=== PATIENT | male | born 1980 | race Caucasian/White ===

== ENCOUNTER 2023-06-21 11:37 | Outpatient (OUT) | payer BC, SELFPAY ==
[2023-06-21 12:02] LABS: Basophils Percent Auto 0.8 % (0.2-2.0); Eosinophils Absolute Auto 0.1 10^3/uL (0.0-0.7); Eosinophils Percent Auto 1.5 % (0.9-7.0); Hematocrit 43.7 % (42.0-54.0); Hemoglobin 14.9 g/dL (14.0-18.0); Immature Granulocytes Abs Auto 0.01 10^3/uL (0.00-0.03); Immature Granulocytes Pct Auto 0.3 % (0.0-0.5); Lymphocytes Absolute Auto 0.9 10^3/uL (1.2-3.8); Lymphocytes Percent Auto 23.3 % (20.5-60.0); Mean Corpuscular HGB Conc 34.1 g/dL (29.9-35.2); Mean Corpuscular Hemoglobin 31.8 pg (25.9-34.0); Mean Corpuscular Volume 93.2 fL (80.0-94.0); Mean Platelet Volume 9.7 fL (9.5-13.5); Monocytes Absolute Auto 0.3 10^3/uL (0.3-0.8); Monocytes Percent Auto 7.9 % (1.7-12.0); Neutrophils Absolute Auto 2.6 10^3/uL (1.4-6.5); Neutrophils Percent Auto 66.2 % (43.0-75.0); Platelet Count 177 10^3/uL (150-450); Red Blood Count 4.69 10^6/uL (4.70-6.10); Red Cell Distribution Width 11.9 % (11.0-15.0); White Blood Count 3.9 10^3/uL (4.0-11.0)
[2023-06-21 12:11] LABS: Estimated Average Glucose 146 mg/dL; Glycohemoglobin A1C 6.7 % (4.5-6.2)
[2023-06-21 12:56] LABS: Alanine Aminotransferase 85 U/L (16-63); Alkaline Phosphatase 40 U/L (46-116); Anion Gap 8.5; Aspartate Amino Transferase 35 U/L (15-37); BUN Creatinine Ratio 14.4; Bilirubin Total 0.4 mg/dL (0.2-1.0); Carbon Dioxide 29.7 mmol/L (21.0-32.0); Chloride 102 mmol/L (98-107); Chol HDL Ratio 3.7; Cholesterol 181 mg/dL (<=200); Estimated GFR (African America >60 (>=60); Estimated GFR (Non-African Ame >60 (>=60); Globulin 3.9 g/dL; Glucose 158 mg/dL (74-106); HDL Cholesterol 49 mg/dL (40-60); Potassium 4.2 mmol/L (3.5-5.1); Sodium 136 mmol/L (136-145); Thyroid Stimulating Hormone 2.112 uIU/mL (0.358-3.740); Total Protein 7.9 g/dL (6.4-8.2); Triglycerides 241 mg/dL (<=150); VLDL CHOLESTEROL 48.2 mg/dL
[2023-06-21 13:00] LABS: Free T4 0.86 ng/dL (0.76-1.46)
[2023-06-21 13:10] LABS: Prostate Specific Antigen Scrn 0.89 ng/mL (<=4.00)
== END 2023-06-21 11:38 | disposition home or self-care (01) ==
LOC: LAB 11:40
PROVIDERS: PCP Family Medicine; Visit Provider Family Medicine
DX: E78.5 Hyperlipidemia, unspecified (principal); I10 Essential (primary) hypertension; Z12.5 Encounter for screening for malignant neoplasm of prostate; R53.83 Other fatigue; R73.09 Other abnormal glucose
CPT/HCPCS: 36415; 80053; 80061; 83036; 84439; 84443; 85025; G0103

== ENCOUNTER 2023-06-22 13:59 | Outpatient (REF) | payer BC, SELFPAY ==
--- OUTSIDE RECORDS SUMMARY | 2023-06-22 14:03 | XMS_ITS | CCD ---
Author Name Unknown Address [facility] [place] [address] Organization [facility] Care Team Providers Care Cotton Grader Name Role Phone DR LAURA FORREST Admitting Unavailable LON, DR SANCHEZ Attending Unavailable LON, DR SANCHEZ Primary Care Unavailable LON, DR SANCHEZ Consulting Unavailable DR LAURA FORREST Admitting Unavailable DR LAURA FORREST Attending Unavailable DR LAURA FORREST Primary Care Unavailable LON, DR SANCHEZ Consulting Unavailable Problems Active Problems Problem Classification Problem Date Documented Da te Episodic/Chronic Disorders of lipid metabolism (1 source) Hyperlipidemia, unspecified; Translations: [HYPERLIPIDEMIA UNSPECIFIED] Onset: 07-04-2022 Chronic Malaise and fatigue (1 source) Other fatigue; Translations: [OTHER FATIGUE] Onset: 07-04-2022 Episodic Other screening for suspected conditions (not mental disorders or infectious disease) (2 sources) Encounter for screening for malignant neoplasm of colon; Translations: [Encounter for screening for malignant neoplasm of prostate] Onset: 07-04-2022 Episodic Past or Other Problems Problem Classification Problem Date Documented Da te Episodic/Chronic Other aftercare (4 sources) 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 Comment on above: Result Comment: The table below lists the probability of prostate cancer for men with non-suspicious ROXANNE results and total PSA between 4 and 10 ng/mL, by patient age (Ximena et al, JANET 1998, [id number]:1542). % Free PSA 50-64 yr 65-75 yr 0.00-10.00% 56% 55% 10.01-15.00% 24% 35% 15.01-20.00% 17% 23% 20.01-25.00% 10% 20% >25.00% 5% 9% Please note: Ximena et al did not make specific recommendations regarding the use of percent free PSA for any other population of men. Performed By: #### P SAFREE #### [facility] [address] [place] [address] Dr. Uriel Baldwin Prostate specific Ag [Mass/Vol] 0.8 ng/mL Normal 0.0-4.0 [facility] Comment on above: Result Comment: Nilton RAMOS methodology. . According to the [place] [employer], Serum PSA should decrease and remain at undetectable levels after radical prostatectomy. The AUA defines biochemical recurrence as an initial PSA value 0.2 ng/mL or greater followed by a subsequent confirmatory PSA value 0.2 ng/mL or greater. Values obtained with different assay methods or kits cannot be used interchangeably. Results cannot be interpreted as absolute evidence of the presence or absence of malignant disease. Performed By: #### P SAFREE #### [facility] [address] [place] [address] Dr. Uriel Baldwin PSA, Free 0.20 ng/mL Normal N/A [facility] Comment on above: Result Comment: Nilton RAMOS methodology. Performed By: #### P SAFREE #### [facility] [address] [place] [address] Dr. Uriel Baldwin CBC AUTO DIFFon 07-03-2022 BASO # 0.0 103/ul Normal 0.0-0.1 [facility] Comment on above: Performed By: #### C BC #### [facility] [address] [place] [address] Dr. Uriel Baldwin Basophils/100 WBC (Bld) 0.5 % Normal 0.2-2.0 [facility] Comment on above: Performed By: #### C BC #### [facility] [address] [place] [address] Dr. Uriel Baldwin EO # 0.1 103/ul Normal 0.0-0.7 [facility] Comment on above: Performed By: #### C BC #### [facility] [address] [place] [address] Dr. Uriel Baldwin Eosinophils/100 WBC (Bld) 1.4 % Normal 0.9-7.0 [facility] Comment on above: Performed By: #### C BC #### [facility] [address] [place] [address] Dr. Uriel Baldwin Erythrocyte distribution width (RBC) [Ratio] 12.6 % Normal 11.0-15.0 [facility] Comment on above: Performed By: #### C BC #### [facility] [address] [place] [address] Dr. Uriel Baldwin Hematocrit (Bld) [Volume fraction] 45.3 % Normal 42.0-54.0 [facility] Comment on above: Performed By: #### C BC #### [facility] [address] [place] [address] Dr. Uriel Baldwin Hemoglobin (Bld) [Mass/Vol] 14.5 g/dL Normal 14.0-18.0 [facility] Comment on above: Performed By: #### C BC #### [facility] [address] [place] [address] Dr. Uriel Baldwin IG # 0.00 10e3/ul Normal 0.00-0.03 [facility] Comment on above: Performed By: #### C BC #### [facility] [address] [place] [address] Dr. Uriel Baldwin IG % 0.0 % Normal 0.0-0.5 [facility] Comment on above: Performed By: #### C BC #### [facility] [address] [place] [address] Dr. Uriel Baldwin LYMPH # 1.1 103/ul Critically low 1.2-3.8 [facility] Comment on above: Performed By: #### C BC #### [facility] [address] [place] [address] Dr. Uriel Baldwin Lymphocytes/100 WBC (Bld) 29.0 % Normal 20.5-60.0 [facility] Comment on above: Performed By: #### C BC #### [facility] [address] [place] [address] Dr. Uriel Baldwin MANUAL DIFF REQ NO Normal [facility] Comment on above: Performed By: #### C BC #### [facility] [address] [place] [address] Dr. Uriel Baldwin MCH (RBC) [Entitic mass] 31.0 pg Normal 25.9-34.0 [facility] Comment on above: Performed By: #### C BC #### [facility] [address] [place] [address] Dr. Uriel Baldwin MCHC (RBC) [Mass/Vol] 32.0 g/dL Normal 29.9-35.2 [facility] Comment on above: Performed By: #### C BC #### [facility] [address] [place] [address] Dr. Uriel Baldwin MCV (RBC) [Entitic vol] 96.8 fL Critically high 80.0-94.0 [facility] Comment on above: Performed By: #### C BC #### [facility] [address] [place] [address] Dr. Uriel Baldwin MONO # 0.3 103/ul Normal 0.3-0.8 [facility] Comment on above: Performed By: #### C BC #### [facility] [address] [place] [address] Dr. Uriel Baldwin Monocytes/100 WBC (Bld) 9.3 % Normal 1.7-12.0 [facility] Comment on above: Performed By: #### C BC #### [facility] [address] [place] [address] Dr. Uriel Baldwin NEUT # 2.2 103/ul Normal 1.4-6.5 [facility] Comment on above: Performed By: #### C BC #### [facility] [address] [place] [address] Dr. Uriel Baldwin Neutrophils/100 WBC (Bld) 59.8 % Normal 43.0-75.[address] [facility] Comment on above: Performed By: #### C BC #### [facility] [address] [place] [address] Dr. Uriel Baldwin Platelet mean volume (Bld) [Entitic vol] 9.6 fL Normal 9.5-13.5 [facility] Comment on above: Performed By: #### C BC #### [facility] [address] [address] [address] Uriel Baldwin PLT 179 103/ul Normal 150-450 [facility] Comment on above: Performed By: #### C BC #### [facility] [address] [place] [address] Dr. Uriel Baldwin RBC 4.68 106/ul Critically low 4.70-6.10 [facility] Comment on above: Performed By: #### C BC #### [facility] [address] [address] [address] Uriel Baldwin WBC 3.7 103/ul Critically low 4.0-11.0 [facility] Comment on above: Performed By: #### C BC #### [facility] [address] [place] [address] Dr. Uriel Baldwin FREE T3on 07-03-2022 FREE T3 2.96 pg/mlL Normal 2.18-3.98 [facility] Comment on above: Performed By: #### L IPID, FT3, CMP, TSH, T4 #### [facility] [address] [place] [address] Dr. Uriel Baldwin GLYCOHEMOGLOBIN A1Con 2022 ADA RECOMMENDATION SEE BELOW Normal [facility] Comment on above: Result Comment: ADA RECOMMENDED LIMIT 4.0 - 6.0 ADA THERAPEUTIC TARGET < 7.0 ACTION SUGGESTED > 7.0 Performed By: #### A 1C #### [facility] [address] [place] [address] Dr. Uriel Baldwin Glucose [Mass/Vol] 131 mg/dL Normal [facility] Comment on above: Performed By: #### A 1C #### [facility] [address] [place] [address] Dr. Uriel Baldwin HbA1c (Bld) [Mass fraction] 6.2 % Normal 4.5-6.2 [facility] Comment on above: Performed By: #### A 1C #### [facility] [address] [place] [address] Dr. Uriel Baldwin LIPID PROFILEon 07-03-2022 CHOL-HDL RATIO NORM SEE BELOW Normal [facility] Comment on above: Result Comment: 3.3 - 4.4 LOW RISK 4.4 - 7.1 AVERAGE RISK 7.1 - 11.0 MODERATE RISK >11.0 HIGH RISK Performed By: #### L IPID, FT3, CMP, TSH, T4 #### [facility] [address] [address] [address] Uriel Baldwin Cholesterol [Mass/Vol] 163 mg/dL Normal <=200 [facility] Comment on above: Performed By: #### L IPID, FT3, CMP, TSH, T4 #### [facility] [address] [address] [address] Uriel Baldwin Cholesterol in HDL [Mass/Vol] 51 mg/dL Normal 40-60 [facility] Comment on above: Performed By: #### L IPID, FT3, CMP, TSH, T4 #### [facility] [address] [address] [address] Uriel Baldwin Cholesterol in LDL [Mass/Vol] 74.4 mg/dL Normal [facility] Comment on above: Performed By: #### L IPID, FT3, CMP, TSH, T4 #### [facility] [address] [address] [address] Uriel Baldwin Cholesterol.total/Cho lesterol in HDL [Mass ratio] 3.2 {ratio} Normal [facility] Comment on above: Performed By: #### L IPID, FT3, CMP, TSH, T4 #### [facility] [address] [address] [address] Uriel Baldwin HDL NORMAL > or = 60 mg/dl - LOW CARDIOVASCULAR RISK <40 mg/dl - HIGH CARDIOVASCULAR RISK Normal [facility] Comment on above: Performed By: #### L IPID, FT3, CMP, TSH, T4 #### [facility] [address] [address] [address] Uriel Baldwin LDL CALC NORMAL SEE BELOW Normal [facility] Comment on above: Result Comment: <100 mg/dl OPTIMAL 100 - 129 mg/dl NEAR OR ABOVE OPTIMAL 130 - 159 mg/dl BORDERLINE HIGH 160 - 189 mg/dl HIGH >190 mg/dl VERY HIGH Performed By: #### L IPID, FT3, CMP, TSH, T4 #### [facility] [address] [address] [address] Uriel Baldwin Triglyceride [Mass/Vol] 188 mg/dL Critically high <=150 [facility] Comment on above: Performed By: #### L IPID, FT3, CMP, TSH, T4 #### [facility] [address] [address] [address] Uriel Baldwin VLDL CALC 37.6 mg/dL Normal [facility] Comment on above: Performed By: #### L IPID, FT3, CMP, TSH, T4 #### [facility] [address] [place] [address] Dr. Uriel Baldwin PROF 14(COMP METB)on 023 Albumin [Mass/Vol] 4.0 g/dL Normal 3.4-5.0 [facility] Comment on above: Performed By: #### L IPID, FT3, CMP, TSH, T4 #### [facility] [address] [address] [address] Uriel Baldwin Albumin/Globulin [Mass ratio] 1.2 {ratio} Normal [facility] Comment on above: Performed By: #### L IPID, FT3, CMP, TSH, T4 #### [facility] [address] [address] [address] Uriel Baldwin ALP [Catalytic activity/Vol] 49 U/L Normal 46-116 [facility] Comment on above: Performed By: #### L IPID, FT3, CMP, TSH, T4 #### [facility] [address] [address] [address] Uriel Baldwin ALT [Catalytic activity/Vol] 59 U/L Normal 16-63 [facility] Comment on above: Performed By: #### L IPID, FT3, CMP, TSH, T4 #### [facility] [address] [address] [address] Uriel Baldwin Anion gap [Moles/Vol] 13.3 mmol/L Normal e [facility] Comment on above: Performed By: #### L IPID, FT3, CMP, TSH, T4 #### [facility] [address] [address] [address] Uriel Baldwin AST [Catalytic activity/Vol] 28 U/L Normal 15-37 [facility] Comment on above: Performed By: #### L IPID, FT3, CMP, TSH, T4 #### [facility] [address] [address] [address] Uriel Baldwin Bilirubin [Mass/Vol] 0.5 mg/dL Normal 0.2-1.0 [facility] Comment on above: Performed By: #### L IPID, FT3, CMP, TSH, T4 #### [facility] [address] [place] [address] Dr. Uriel Baldwin Calcium [Mass/Vol] 8.7 mg/dL Normal 8.5-10.1 [facility] Comment on above: Performed By: #### L IPID, FT3, CMP, TSH, T4 #### [facility] [address] [address] [address] Uriel Baldwin Chloride [Moles/Vol] 103 mmol/L Normal 98-107 [facility] Comment on above: Performed By: #### L IPID, FT3, CMP, TSH, T4 #### [facility] [address] [place] [address] Dr. Uriel Baldwin CO2 [Moles/Vol] 27.4 mmol/L Normal 21.0-32.0 [facility] Comment on above: Performed By: #### L IPID, FT3, CMP, TSH, T4 #### [facility] [address] [address] [address] Uriel Baldwin Creatinine [Mass/Vol] 0.90 mg/dL Normal 0.70-1.30 [facility] Comment on above: Performed By: #### L IPID, FT3, CMP, TSH, T4 #### [facility] [address] [address] [address] Uriel Baldwin EGFR-AF GIBRALTARIAN >60 Normal >=60 [facility] Comment on above: Performed By: #### L IPID, FT3, CMP, TSH, T4 #### [facility] [address] [address] [address] Uriel Baldwin EGFR-NON AF GIBRALTARIAN >60 Normal >=60 [facility] Comment on above: Performed By: #### L IPID, FT3, CMP, TSH, T4 #### [facility] [address] [address] [address] Uriel Baldwin Globulin (S) [Mass/Vol] 3.4 g/dL Normal [facility] Comment on above: Performed By: #### L IPID, FT3, CMP, TSH, T4 #### [facility] [address] [place] [address] Dr. Uriel Baldwin Glucose [Mass/Vol] 140 mg/dL Critically high 74-106 [facility] Comment on above: Performed By: #### L IPID, FT3, CMP, TSH, T4 #### [facility] [address] [address] [address] Uriel Baldwin Potassium [Moles/Vol] 4.7 mmol/L Normal 3.5-5.1 [facility] Comment on above: Performed By: #### L IPID, FT3, CMP, TSH, T4 #### [facility] [address] [place] [address] Dr. Uriel Baldwin Protein [Mass/Vol] 7.4 g/dL Normal 6.4-8.2 [facility] Comment on above: Performed By: #### L IPID, FT3, CMP, TSH, T4 #### [facility] [address] [address] [address] Uriel Baldwin Sodium [Moles/Vol] 139 mmol/L Normal 136-145 [facility] Comment on above: Performed By: #### L IPID, FT3, CMP, TSH, T4 #### [facility] [address] [place] [address] Dr. Uriel Baldwin Urea nitrogen [Mass/Vol] 16.0 mg/dL Normal 7.0-18.0 [facility] Comment on above: Performed By: #### L IPID, FT3, CMP, TSH, T4 #### [facility] [address] [address] [address] Uriel Baldwin Urea nitrogen/Creatinine [Mass ratio] 17.8 mg/mg Normal [facility] Comment on above: Performed By: #### L IPID, FT3, CMP, TSH, T4 #### [facility] [address] [address] [address] Uriel Baldwin T4on 07-03-2022 T4 [Mass/Vol] 6.10 ug/dL Normal 4.50-12.10 [facility] Comment on above: Performed By: #### L IPID, FT3, CMP, TSH, T4 #### [facility] [address] [place] [address] Dr. Uriel Baldwin TSHon 07-03-2022 TSH 1.756 uIU/mL Normal 0.358-3.740 [facility] Comment on above: Performed By: #### L IPID, FT3, CMP, TSH, T4 #### [facility] [address] [place] [address] Dr. Uriel Baldwin LIPID PROFILEon 09-17-2021 CHOL-HDL RATIO NORM SEE BELOW Normal [facility] Comment on above: Result Comment: 3.3 - 4.4 LOW RISK 4.4 - 7.1 AVERAGE RISK 7.1 - 11.0 MODERATE RISK >11.0 HIGH RISK Performed By: #### L IVER, LIPID #### [facility] [address] [place] [address] Dr. Uriel Baldwin Cholesterol [Mass/Vol] 135 mg/dL Normal <=200 [facility] Comment on above: Performed By: #### L IVER, LIPID #### [facility] [address] [place] [address] Dr. Uriel Baldwin Cholesterol in HDL [Mass/Vol] 42 mg/dL Normal 40-60 [facility] Comment on above: Performed By: #### L IVER, LIPID #### [facility] [address] [place] [address] Dr. Uriel Baldwin Cholesterol in LDL [Mass/Vol] 58.0 mg/dL Normal [facility] Comment on above: Performed By: #### L IVER, LIPID #### [facility] [address] [address] [address] Uriel Baldwin Cholesterol.total/Cho lesterol in HDL [Mass ratio] 3.2 {ratio} Normal [facility] Comment on above: Performed By: #### L IVER, LIPID #### [facility] [address] [address] [address] Uriel Baldwin HDL NORMAL > or = 60 mg/dl - LOW CARDIOVASCULAR RISK <40 mg/dl - HIGH CARDIOVASCULAR RISK Normal [facility] Comment on above: Performed By: #### L IVER, LIPID #### [facility] [address] [address] [address] Uriel Baldwin LDL CALC NORMAL SEE BELOW Normal [facility] Comment on above: Result Comment: <100 mg/dl OPTIMAL 100 - 129 mg/dl NEAR OR ABOVE OPTIMAL 130 - 159 mg/dl BORDERLINE HIGH 160 - 189 mg/dl HIGH >190 mg/dl VERY HIGH Performed By: #### L IVER, LIPID #### [facility] [address] [address] [address] Uriel Baldwin Triglyceride [Mass/Vol] 175 mg/dL Critically high <=150 [facility] Comment on above: Performed By: #### L IVER, LIPID #### [facility] [address] [address] [address] Uriel Baldwin VLDL CALC 35.0 mg/dL Normal [facility] Comment on above: Performed By: #### L IVER, LIPID #### [facility] [address] [address] [address] Uriel Baldwin LIVER PROFILEon 09-17-2021 Albumin [Mass/Vol] 4.0 g/dL Normal 3.4-5.0 [facility] Comment on above: Performed By: #### L IVER, LIPID #### [facility] [address] [address] [address] Uriel Baldwin Albumin/Globulin [Mass ratio] 1.2 {ratio} Normal [facility] Comment on above: Performed By: #### L IVER, LIPID #### [facility] [address] [address] [address] Uriel Baldwin ALP [Catalytic activity/Vol] 46 U/L Normal 46-116 [facility] Comment on above: Performed By: #### L IVER, LIPID #### [facility] [address] [address] [address] Uriel Baldwin ALT [Catalytic activity/Vol] 63 U/L Normal 16-63 [facility] Comment on above: Performed By: #### L IVER, LIPID #### [facility] [address] [address] [address] Uriel Baldwin AST [Catalytic activity/Vol] 25 U/L Normal 15-37 [facility] Comment on above: Performed By: #### L IVER, LIPID #### [facility] [address] [address] [address] Uriel Baldwin BILI, CONJUGATED 0.1 mg/dL Normal 0.0-0.2 [facility] Comment on above: Performed By: #### L IVER, LIPID #### [facility] [address] [address] [address] Uriel Baldwin Bilirubin [Mass/Vol] 0.4 mg/dL Normal 0.2-1.0 [facility] Comment on above: Performed By: #### L IVER, LIPID #### [facility] [address] [address] [address] Uriel Baldwin Globulin (S) [Mass/Vol] 3.4 g/dL Normal [facility] Comment on above: Performed By: #### L IVER, LIPID #### [facility] [address] [address] [address] Uriel Baldwin Protein [Mass/Vol] 7.4 g/dL Normal 6.1-8.2 [facility] Comment on above: Performed By: #### L IVER, LIPID #### [facility] [address] [address] [address] Uriel Baldwin Encounters Encounter Date Encounter Type Care Provider Facility Start: 02-07-2023 Encounter for genera l adult medical examination without abnormal findings DR LAURA FORREST [facility] Start: 07-03-2022 End: 07-04-[address] LAURA FORREST Facility:[facility] Start: 07-03-2022 End: 07-04-2022 Encounter for general adult medical examination without abnormal findings DR LAURA FORREST Facility:[facility] Start: 09-17-2021 End: 09-18-[address] LAURA FORREST Facility:[facility] Payers Date Payer Category Payer Unknown [id number] 1980 Unknown [id number] 1959 Unknown [id number] 1959 Unknown [id number] Summary Purpose Family History No Family History Records Found Advance Directives No Advanced Directives Records Found Additional Source Comments (unrecognized sect ion and content) No Status Records Found INFORMATION SOURCE (unrecogn ized section and content) DATE CREATED AUTHOR 07/05/2022 The [facility] FOR RECORDS PERTAINING TO PATIENTS WHO ARE OR HAVE BEEN ENROLLED IN A CHEMICAL DEPENDENCY/SUBSTANCEABUSE PROGRAM, SOME INFORMATION MAY BE OMITTED. This clinical summary was aggregated from multiple sources. Caution should be exercised in using it in the provision of clinical care. This summary normalizes information from multiple sources, and as a consequence, information in this document may materially change the coding, format and clinical context of patient data. In addition, data may be omitted in some cases. CLINICAL DECISIONS SHOULD BE BASED ON THE PRIMARY CLINICAL RECORDS. [facility] [employer] provides no warranty or guarantee of the accuracy or completeness of information in this document.
[2023-06-23 03:10] LABS: Occult Blood Negative
== END 2023-06-22 14:00 | disposition home or self-care (01) ==
LOC: LAB 13:59
PROVIDERS: PCP Family Medicine; Visit Provider Family Medicine
DX: Z12.11 Encounter for screening for malignant neoplasm of colon (principal)
CPT/HCPCS: G0328

== ENCOUNTER 2024-06-20 10:54 | Outpatient (OUT) | payer BC, SELFPAY ==
--- OUTSIDE RECORDS SUMMARY | 2024-06-20 10:59 | XMS_ITS | CCD ---
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 % Free PSA 50-64 yr 65-75 yr 0.00-10.00% 56% 55% 10.01-15.00% 24% 35% 15.01-20.00% 17% 23% 20.01-25.00% 10% 20% >25.00% 5% 9% Please note: Catalona et al did not make specific recommendations regarding the use of percent free PSA for any other population of men. Performed By: #### P SAFREE #### [facility] [address] [place] [address] Dr. Uriel Baldwin Prostate specific Ag [Mass/Vol] 0.8 ng/mL Normal 0.0-4.0 [facility] Comment on above: Result Comment: Nilton arreola ECLIA methodology. . According to the [employer] [employer], Serum PSA should decrease and [...] disease. Performed By: #### P SAFREE #### [facility] [address] [place] [address] Dr. Uriel Baldwin PSA, Free 0.20 ng/mL Normal N/A [facility] Comment on above: Result Comment: [place]ilton arreola ECLIA methodology. Performed By: #### P SAFREE #### [facility] [address] [place] [address] Dr. Uriel Baldwin CBC AUTO DIFFon 07-03-2022 BASO # 0.0 103/ul Normal 0.0-0.1 [facility] Comment on above: Performed By: #### C BC #### [facility] [address] [place] [address] Dr. Uriel Baldwin Basophils/100 WBC (Bld) 0.5 % Normal 0.2-2.0 [facility] Comment on above: Performed By: #### C BC #### [facility] [address] [place] [address] Dr. Uriel Baldwin EO # 0.1 103/ul Normal 0.0-0.7 [facility] Comment on above: Performed By: #### C BC #### [facility] [address] [place] [address] Dr. Uriel Baldwin Eosinophils/100 WBC (Bld) 1.4 % Normal 0.9-7.0 [facility] Comment on above: Performed By: #### C BC #### [facility] [address] [place] [address] Dr. Uriel Baldwin Erythrocyte distribution width (RBC) [Ratio] 12.6 % Normal 11.0-15.0 [facility] Comment on above: Performed By: #### C BC #### [facility] [address] [place] [address] Dr. Uriel Baldwin Hematocrit (Bld) [Volume fraction] 45.3 % Normal 42.0-54.0 [facility] Comment on above: Performed By: #### C BC #### [facility] [address] [place] [address] Dr. Uriel Baldwin Hemoglobin (Bld) [Mass/Vol] 14.5 g/dL Normal 14.0-18.0 [facility] Comment on above: Performed By: #### C BC #### [facility] [address] [place] [address] Dr. Uriel Baldwin IG # 0.00 10e3/ul Normal 0.00-0.03 [facility] Comment on above: Performed By: #### C BC #### [facility] [address] [place] [address] Dr. Uriel Baldwin IG % 0.0 % Normal 0.0-0.5 [facility] Comment on above: Performed By: #### C BC #### [facility] [address] [place] [address] Dr. Uriel Baldwin LYMPH # 1.1 103/ul Critically low 1.2-3.8 [facility] Comment on above: Performed By: #### C BC #### [facility] [address] [place] [address] Dr. Uriel Baldwin Lymphocytes/100 WBC (Bld) 29.0 % Normal 20.5-60.0 [facility] Comment on above: Performed By: #### C BC #### [facility] [address] [place] [address] Dr. Uriel Baldwin MANUAL DIFF REQ NO Normal [facility] Comment on above: Performed By: #### C BC #### [facility] [address] [place] [address] Dr. Uriel Baldwin MCH (RBC) [Entitic mass] 31.0 pg Normal 25.9-34.0 [facility] Comment on above: Performed By: #### C BC #### [facility] [address] [place] [address] Dr. Uriel Baldwin MCHC (RBC) [Mass/Vol] 32.0 g/dL Normal 29.9-35.2 [facility] Comment on above: Performed By: #### C BC #### [facility] [address] [place] [address] Dr. Uriel Baldwin MCV (RBC) [Entitic vol] 96.8 fL Critically high 80.0-94.0 [facility] Comment on above: Performed By: #### C BC #### [facility] [address] [place] [address] Dr. Uriel Baldwin MONO # 0.3 103/ul Normal 0.3-0.8 [facility] Comment on above: Performed By: #### C BC #### [facility] [address] [place] [address] Dr. Uriel Baldwin Monocytes/100 WBC (Bld) 9.3 % Normal 1.7-12.0 [facility] Comment on above: Performed By: #### C BC #### [facility] [address] [place] [address] Dr. Uriel Baldwin NEUT # 2.2 103/ul Normal 1.4-6.5 [facility] Comment on above: Performed By: #### C BC #### [facility] [address] [place] [address] Dr. Uriel Baldwin Neutrophils/100 WBC (Bld) 59.8 % Normal 43.0-75.0 [facility] Comment on above: Performed By: #### C BC #### [facility] [address] [place] [address] Dr. Uriel Baldwin Platelet mean volume (Bld) [Entitic vol] 9.6 fL Normal 9.5-13.5 [facility] Comment on above: Performed By: #### C BC #### [facility] [address] [address] [address] Uriel Baldwin PLT 179 103/ul Normal 150-450 [facility] Comment on above: Performed By: #### C BC #### [facility] [address] [address] [address] Uriel Baldwin RBC 4.68 106/ul Critically low 4.70-6.10 [facility] Comment on above: Performed By: #### C BC #### [facility] [address] [address] [address] Uriel Baldwin WBC 3.7 103/ul Critically low 4.0-11.0 [facility] Comment on above: Performed By: #### C BC #### [facility] [address] [place] [address] Dr. Uriel Baldwin FREE T3on 07-03-2022 FREE T3 2.96 pg/mlL Normal 2.18-3.98 [facility] Comment on above: Performed By: #### L IPID, FT3, CMP, TSH, T4 #### [facility] [address] [address] [address] Uriel Baldwin GLYCOHEMOGLOBIN A1Con 2022 ADA RECOMMENDATION SEE BELOW Normal [facility] Comment on above: Result Comment: ADA RECOMMENDED LIMIT 4.0 - 6.0 ADA THERAPEUTIC TARGET < 7.0 ACTION SUGGESTED > 7.0 Performed By: #### A 1C #### [facility] [address] [address] [address] Uriel Baldwin Glucose [Mass/Vol] 131 mg/dL Normal [facility] Comment on above: Performed By: #### A 1C #### [facility] [address] [address] [address] Uriel Baldwin HbA1c (Bld) [Mass fraction] 6.2 % Normal 4.5-6.2 [facility] Comment on above: Performed By: #### A 1C #### [facility] [address] [address] [address] Uriel Baldwin LIPID PROFILEon 07-03-2022 CHOL-HDL RATIO NORM SEE BELOW Normal [facility] Comment on above: Result Comment: 3.3 - 4.4 LOW RISK 4.4 - 7.1 AVERAGE RISK 7.1 - 11.0 MODERATE RISK >11.0 HIGH RISK Performed By: #### L IPID, FT3, CMP, TSH, T4 #### [facility] [address] [address] [address] Uriel Baldwin Cholesterol [Mass/Vol] 163 mg/dL Normal <=200 [facility] Comment on above: Performed By: #### L IPID, FT3, CMP, TSH, T4 #### [facility] [address] [address] [address] Uriel Baldwin Cholesterol in HDL [Mass/Vol] 51 mg/dL Normal 40-60 [facility] Comment on above: Performed By: #### L IPID, FT3, CMP, TSH, T4 #### [facility] [address] [place] [address] Dr. Uriel Baldwin Cholesterol in LDL [Mass/Vol] 74.4 mg/dL Normal [facility] Comment on above: Performed By: #### L IPID, FT3, CMP, TSH, T4 #### [facility] [address] [place] [address] Dr. Uriel Baldwin Cholesterol.total/Cho lesterol in HDL [Mass ratio] 3.2 {ratio} Normal [facility] Comment on above: Performed By: #### L IPID, FT3, CMP, TSH, T4 #### [facility] [address] [address] [address] Uriel Baldwin HDL NORMAL > or = 60 mg/dl - LOW CARDIOVASCULAR RISK <40 mg/dl - HIGH CARDIOVASCULAR RISK Normal [facility] Comment on above: Performed By: #### L IPID, FT3, CMP, TSH, T4 #### [facility] [address] [place] [address] Dr. Uriel Baldwin LDL CALC NORMAL SEE BELOW Normal [facility] Comment on above: Result Comment: <100 mg/dl OPTIMAL 100 - 129 mg/dl NEAR OR ABOVE OPTIMAL 130 - 159 mg/dl BORDERLINE HIGH 160 - 189 mg/dl HIGH >190 mg/dl VERY HIGH Performed By: #### L IPID, FT3, CMP, TSH, T4 #### [facility] [address] [address] [address] Uriel Baldwin Triglyceride [Mass/Vol] 188 mg/dL Critically high <=150 [facility] Comment on above: Performed By: #### L IPID, FT3, CMP, TSH, T4 #### [facility] [address] [address] [address] Uriel Baldwin VLDL CALC 37.6 mg/dL Normal [facility] Comment on above: Performed By: #### L IPID, FT3, CMP, TSH, T4 #### [facility] [address] [place] [address] Dr. Uriel Baldwin PROF 14(COMP METB)on 023 Albumin [Mass/Vol] 4.0 g/dL Normal 3.4-5.0 [facility] Comment on above: Performed By: #### L IPID, FT3, CMP, TSH, T4 #### [facility] [address] [place] [address] Dr. Uriel Baldwin Albumin/Globulin [Mass ratio] 1.2 {ratio} Normal [facility] Comment on above: Performed By: #### L IPID, FT3, CMP, TSH, T4 #### [facility] [address] [place] [address] Dr. Uriel Baldwin ALP [Catalytic activity/Vol] 49 U/L Normal 46-116 [facility] Comment on above: Performed By: #### L IPID, FT3, CMP, TSH, T4 #### [facility] [address] [place] [address] Dr. Uriel Baldwin ALT [Catalytic activity/Vol] 59 U/L Normal 16-63 [facility] Comment on above: Performed By: #### L IPID, FT3, CMP, TSH, T4 #### [facility] [address] [place] [address] Dr. Uriel Baldwin Anion gap [Moles/Vol] 13.3 mmol/L Normal [facility] Comment on above: Performed By: #### L IPID, FT3, CMP, TSH, T4 #### [facility] [address] [address] [address] Uriel Baldwin AST [Catalytic activity/Vol] 28 U/L Normal 15-37 [facility] Comment on above: Performed By: #### L IPID, FT3, CMP, TSH, T4 #### [facility] [address] [address] [address] Uriel Baldwin Bilirubin [Mass/Vol] 0.5 mg/dL Normal 0.2-1.0 [facility] Comment on above: Performed By: #### L IPID, FT3, CMP, TSH, T4 #### [facility] [address] [place] [address] Dr. Uriel Baldwin Calcium [Mass/Vol] 8.7 mg/dL Normal 8.5-10.1 [facility] Comment on above: Performed By: #### L IPID, FT3, CMP, TSH, T4 #### [facility] [address] [place] [address] Dr. Uriel Baldwin Chloride [Moles/Vol] 103 mmol/L Normal 98-107 [facility] Comment on above: Performed By: #### L IPID, FT3, CMP, TSH, T4 #### [facility] [address] [place] [address] Dr. Uriel Baldwin CO2 [Moles/Vol] 27.4 mmol/L Normal 21.0-32.0 [facility] Comment on above: Performed By: #### L IPID, FT3, CMP, TSH, T4 #### [facility] [address] [place] [address] Dr. Uriel Baldwin Creatinine [Mass/Vol] 0.90 mg/dL Normal 0.70-1.30 [facility] Comment on above: Performed By: #### L IPID, FT3, CMP, TSH, T4 #### [facility] [address] [place] [address] Dr. Uriel Baldwin EGFR-AF ESTONIAN >60 Normal >=60 [facility] Comment on above: Performed By: #### L IPID, FT3, CMP, TSH, T4 #### [facility] [address] [address] [address] Uriel Baldwin EGFR-NON AF ESTONIAN >60 Normal >=60 [facility] Comment on above: Performed By: #### L IPID, FT3, CMP, TSH, T4 #### [facility] [address] [address] [address] Uriel Baldwin Globulin (S) [Mass/Vol] 3.4 g/dL Normal [facility] Comment on above: Performed By: #### L IPID, FT3, CMP, TSH, T4 #### [facility] [address] [address] [address] Uriel Baldwin Glucose [Mass/Vol] 140 mg/dL Critically high 74-106 [facility] Comment on above: Performed By: #### L IPID, FT3, CMP, TSH, T4 #### [facility] [address] [place] [address] Dr. Uriel Baldwin Potassium [Moles/Vol] 4.7 mmol/L Normal 3.5-5.1 [facility] Comment on above: Performed By: #### L IPID, FT3, CMP, TSH, T4 #### [facility] [address] [place] [address] Dr. Uriel Baldwin Protein [Mass/Vol] 7.4 g/dL Normal 6.4-8.2 [facility] Comment on above: Performed By: #### L IPID, FT3, CMP, TSH, T4 #### [facility] [address] [place] [address] Dr. Uriel Baldwin Sodium [Moles/Vol] 139 mmol/L Normal 136-145 [facility] Comment on above: Performed By: #### L IPID, FT3, CMP, TSH, T4 #### [facility] [address] [place] [address] Dr. Uriel Baldwin Urea nitrogen [Mass/Vol] 16.0 mg/dL Normal 7.0-18.0 [facility] Comment on above: Performed By: #### L IPID, FT3, CMP, TSH, T4 #### [facility] [address] [address] [address] Uriel Baldwin Urea nitrogen/Creatinine [Mass ratio] 17.8 mg/mg Normal [facility] Comment on above: Performed By: #### L IPID, FT3, CMP, TSH, T4 #### [facility] [address] [address] [address] Uriel Baldwin T4on 07-03-2022 T4 [Mass/Vol] 6.10 ug/dL Normal 4.50-12.10 [facility] Comment on above: Performed By: #### L IPID, FT3, CMP, TSH, T4 #### [facility] [address] [place] [address] Dr. Uriel Baldwin TSHon 07-03-2022 TSH 1.756 uIU/mL Normal 0.358-3.740 [facility] Comment on above: Performed By: #### L IPID, FT3, CMP, TSH, T4 #### [facility] [address] [place] [address] Dr. Uriel Baldwin LIPID PROFILEon 09-17-2021 CHOL-HDL RATIO NORM SEE BELOW Normal [facility] Comment on above: Result Comment: 3.3 - 4.4 LOW RISK 4.4 - 7.1 AVERAGE RISK 7.1 - 11.0 MODERATE RISK >11.0 HIGH RISK Performed By: #### L IVER, LIPID #### [facility] [address] [place] [address] Dr. Uriel Baldwin Cholesterol [Mass/Vol] 135 mg/dL Normal <=200 [facility] Comment on above: Performed By: #### L IVER, LIPID #### [facility] [address] [place] [address] Dr. Uriel Baldwin Cholesterol in HDL [Mass/Vol] 42 mg/dL Normal 40-60 [facility] Comment on above: Performed By: #### L IVER, LIPID #### [facility] [address] [place] [address] Dr. Uriel Baldwin Cholesterol in LDL [Mass/Vol] 58.0 mg/dL Normal [facility] Comment on above: Performed By: #### L IVER, LIPID #### [facility] [address] [address] [address] Uriel Baldwin Cholesterol.total/Cho lesterol in HDL [Mass ratio] 3.2 {ratio} Normal [facility] Comment on above: Performed By: #### L IVER, LIPID #### [facility] [address] [address] [address] Uriel Baldwin HDL NORMAL > or = 60 mg/dl - LOW CARDIOVASCULAR RISK <40 mg/dl - HIGH CARDIOVASCULAR RISK Normal [facility] Comment on above: Performed By: #### L IVER, LIPID #### [facility] [address] [address] [address] Uriel Baldwin LDL CALC NORMAL SEE BELOW Normal [facility] Comment on above: Result Comment: <100 mg/dl OPTIMAL 100 - 129 mg/dl NEAR OR ABOVE OPTIMAL 130 - 159 mg/dl BORDERLINE HIGH 160 - 189 mg/dl HIGH >190 mg/dl VERY HIGH Performed By: #### L IVER, LIPID #### [facility] [address] [address] [address] Uriel Baldwin Triglyceride [Mass/Vol] 175 mg/dL Critically high <=150 [facility] Comment on above: Performed By: #### L IVSHILOH, LIPID #### [facility] [address] [address] [address] Uriel Baldwin VLDL CALC 35.0 mg/dL Normal [facility] Comment on above: Performed By: #### L IVER, LIPID #### [facility] [address] [address] [address] Uriel Baldwin LIVER PROFILEon 09-17-2021 Albumin [Mass/Vol] 4.0 g/dL Normal 3.4-5.0 [facility] Comment on above: Performed By: #### L IVER, LIPID #### [facility] [address] [address] [address] Uriel Baldwin Albumin/Globulin [Mass ratio] 1.2 {ratio} Normal [facility] Comment on above: Performed By: #### L IVER, LIPID #### [facility] [address] [address] [address] Uriel Baldwin ALP [Catalytic activity/Vol] 46 U/L Normal 46-116 [facility] Comment on above: Performed By: #### L IVER, LIPID #### [facility] [address] [address] [address] Uriel Baldwin ALT [Catalytic activity/Vol] 63 U/L Normal 16-63 [facility] Comment on above: Performed By: #### L IVER, LIPID #### [facility] [address] [address] [address] Uriel Baldwin AST [Catalytic activity/Vol] 25 U/L Normal 15-37 [facility] Comment on above: Performed By: #### L IVER, LIPID #### [facility] [address] [address] [address] Uriel Baldwin BILI, CONJUGATED 0.1 mg/dL Normal 0.0-0.2 [facility] Comment on above: Performed By: #### L IVER, LIPID #### [facility] [address] [address] [address] Uriel Baldwin Bilirubin [Mass/Vol] 0.4 mg/dL Normal 0.2-1.0 [facility] Comment on above: Performed By: #### L IVER, LIPID #### [facility] [address] [address] [address] Uriel Baldwin Globulin (S) [Mass/Vol] 3.4 g/dL Normal [facility] Comment on above: Performed By: #### L IVER, LIPID #### [facility] [address] [address] [address] Uriel Baldwin Protein [Mass/Vol] 7.4 g/dL Normal 6.1-8.2 [facility] Comment on above: Performed By: #### L IVER, LIPID #### [facility] [address] [address] [address] Uriel Baldwin Encounters Encounter Date Encounter Type Care Provider Facility Start: 07-04-2022 Encounter for genera l adult medical examination without abnormal findings DR LAURA FORREST [facility] Start: 07-03-2022 End: 07-04-[address] LAURA FORREST Facility[facility] Start: 07-03-2022 End: 07-04-2022 Encounter for general adult medical examination without abnormal findings LAURA FORREST Facility:[facility] Start: 09-17-2021 End: 09-18-2021 ambulatory LAURA FORREST Facility:[facility] Payers Date Payer Category Payer Unknown [id number] 1980 Unknown [id number] 1959 Unknown [id number] 1959 Unknown [id number] Summary Purpose Family History No Family History Records Found Advance Directives No Advanced Directives Records Found Additional Source Comments (unrecognized sect ion and content) No Status Records Found INFORMATION SOURCE (unrecogn ized section and content) DATE CREATED AUTHOR 07/05/2022 [facility] FOR RECORDS PERTAINING TO PATIENTS WHO ARE [...] BE BASED ON THE PRIMARY CLINICAL RECORDS. [facility] [employer] [facility]. provides no warranty or guarantee of the accuracy or completeness of information in this document.
[2024-06-20 11:23] LABS: Basophils Percent Auto 0.5 % (0.2-2.0); Eosinophils Absolute Auto 0.1 10^3/uL (0.0-0.7); Eosinophils Percent Auto 1.7 % (0.9-7.0); Hematocrit 43.2 % (42.0-54.0); Hemoglobin 14.8 g/dL (14.0-18.0); Immature Granulocytes Abs Auto 0.01 10^3/uL (0.00-0.03); Immature Granulocytes Pct Auto 0.2 % (0.0-0.5); Lymphocytes Absolute Auto 1.2 10^3/uL (1.2-3.8); Lymphocytes Percent Auto 28.7 % (20.5-60.0); Mean Corpuscular HGB Conc 34.3 g/dL (29.9-35.2); Mean Corpuscular Hemoglobin 31.2 pg (25.9-34.0); Mean Corpuscular Volume 91.1 fL (80.0-94.0); Mean Platelet Volume 9.7 fL (9.5-13.5); Monocytes Absolute Auto 0.4 10^3/uL (0.3-0.8); Monocytes Percent Auto 9.4 % (1.7-12.0); Neutrophils Absolute Auto 2.5 10^3/uL (1.4-6.5); Neutrophils Percent Auto 59.5 % (43.0-75.0); Platelet Count 176 10^3/uL (150-450); Red Blood Count 4.74 10^6/uL (4.70-6.10); White Blood Count 4.2 10^3/uL (4.0-11.0)
[2024-06-20 11:58] LABS: Alanine Aminotransferase 94 U/L (16-63); Albumin Globulin Ratio 1.1; Albumin Level 3.8 g/dL (3.4-5.0); Alkaline Phosphatase 49 U/L (46-116); Anion Gap 10.9; Aspartate Amino Transferase 46 U/L (15-37); BUN Creatinine Ratio 15.2; Bilirubin Total 0.5 mg/dL (0.2-1.0); Calcium 8.6 mg/dL (8.5-10.1); Carbon Dioxide 29.6 mmol/L (21.0-32.0); Chloride 102 mmol/L (98-107); Chol HDL Ratio 4.5; Cholesterol 202 mg/dL (<=200); Estimated GFR (African America >60 (>=60 mL/min/1.73m^2); Estimated GFR (Non-African Ame >60 (>=60 mL/min/1.73m^2); Globulin 3.6 g/dL; Glucose 171 mg/dL (74-106); HDL Cholesterol 45 mg/dL (40-60); Potassium 4.5 mmol/L (3.5-5.1); Sodium 138 mmol/L (136-145); Thyroid Stimulating Hormone 2.379 uIU/mL (0.358-3.740); Total Protein 7.4 g/dL (6.4-8.2); Triglycerides 391 mg/dL (<=150); VLDL CHOLESTEROL 78.2 mg/dL
[2024-06-20 12:02] LABS: Prostate Specific Antigen Scrn 0.71 ng/mL (<=4.00)
[2024-06-20 12:05] LABS: Estimated Average Glucose 194 mg/dL; Glycohemoglobin A1C 8.4 % (4.5-6.2)
== END 2024-06-20 10:55 | disposition home or self-care (01) ==
LOC: LAB 10:56
PROVIDERS: PCP Family Medicine; Visit Provider Family Medicine
DX: Z00.00 Encounter for general adult medical examination without abnormal findings (principal)
CPT/HCPCS: 36415; 80053; 80061; 83036; 84436; 84443; 84481; 85025; G0103